=== PATIENT | female | born 1995 | race African-American/Black ===

== ENCOUNTER 2019-03-13 13:26 | Emergency (ER) | payer MEDICAID, OTHER ==
[~2019-03-13] VITALS: Ht 154.9 cm; Wt 47.6 kg
[~2019-03-13 13:26] MED LIST: PREN-96 PO
[2019-03-13 13:43] VITALS: BP 104/61
== END 2019-03-13 16:07 | disposition home or self-care (01) ==
LOC: EDBD 13:26 → ER 13:38
DX: M79.10 Myalgia, unspecified site (principal); Z79.899 Other long term (current) drug therapy; V49.49XA Driver injured in collision with other motor vehicles in traffic accident, initial encounter; Y93.89 Activity, other specified; Y99.8 Other external cause status; Y92.411 Interstate highway as the place of occurrence of the external cause

== ENCOUNTER 2024-08-27 13:43 | Emergency (ER) | payer OTHER ==
[~2024-08-27] VITALS: Ht 154.9 cm; Wt 53.1 kg
[2024-08-27 15:02] LABS: Basophils # (auto) 0 10 ^3/uL (0-0.2); Basophils % (auto) 0.6 % (0.0-2.0); Eosinophils # (auto) 0 10 ^3/uL (0-0.8); Eosinophils % (auto) 0.5 % (0.0-7.0); Hemoglobin 13.7 g/dL (12.2-16.2); Lymphocytes # (auto) 1.4 10 ^3/uL (0.4-5.4); Lymphocytes % (auto) 30.2 % (10.0-50.0); Mean Corpuscular Hemoglobin 30.2 pg (28.0-32.0); Mean Corpuscular Hgb Conc. 34.2 g/dL (32.0-36.0); Mean Corpuscular Volume 88.3 fL (80.0-100.0); Monocytes # (auto) 0.5 10 ^3/uL (0-1.3); Monocytes % (auto) 9.5 % (0.0-12.0); Neutrophils # (auto) 2.8 10 ^3/uL (1.6-8.6); Neutrophils % (auto) 59.2 % (37.0-80.0); Nucleated Red Blood Cells % 0.1 %; Platelet Count (auto) 398 10^3/uL (140-450); Red Blood Cells 4.53 10^6/uL (4.0-5.20); White Blood Cell 4.8 10^3/uL (4.4-10.8)
[2024-08-27 15:08] LABS: Chloride 102 mmol/L (98-107); Potassium 3.2 mmol/L (3.5-5.1); Sodium 136 mmol/L (136-145)
[2024-08-27 15:09] LABS: Anion Gap 8 (5-15); Carbon Dioxide 26 mmol/L (20-31)
[2024-08-27 15:10] LABS: Calcium 9.8 mg/dL (8.7-10.4)
[2024-08-27 15:14] LABS: BUN/Creatinine Ratio 8.5 (10.0-20.0); Blood Urea Nitrogen 6 mg/dL (9-23); Glucose 98 mg/dL (74-106)
[2024-08-27 15:38] LABS: Urine Bacteria None Seen /hpf (None Seen)
[2024-08-27 15:52] LABS: Urine Blood Negative /uL (Negative); Urine Clarity Clear (Clear); Urine Color Yellow (Yellow); Urine Mucus FEW (None Seen); Urine Protein, UAD 1+ (Negative); Urine Specific Gravity 1.029 (1.001-1.035); Urine Urobilinogen 8 mg/dL (Negative); Urine WBC 24 /hpf (0 - 5); Urine pH 7.5 (5.0-9.0)
[2024-08-27 16:01] LABS: Amphetamine Screen, Urine Neg (NEGATIVE); Barbiturate Scree,Urine Neg (NEGATIVE); Benzodiazephine Screen, Urine Neg (NEGATIVE); Cocaine Screen, Urine Neg (NEGATIVE); Opiate Scree,Urine Neg (NEGATIVE)
[2024-08-27 16:02] LABS: Cannabinoid Screen, Urine Pos (NEGATIVE); Phencyclidine Screen, Urine Neg (NEGATIVE)
[2024-08-27] MEDS ORDERED: ZOFR4T PO (17:05)
[2024-08-27] MEDS ORDERED: NITR-87 PO (17:05)
[2024-08-27] MEDS: SODIUM CHLORIDE 0.9% 1,000 ML IV ONE (17:11)
[2024-08-27] MEDS: ONDANSETRON HCL 4 MG/2 ML VIAL IV ONE (17:13)
[2024-08-27 18:20] VITALS: BP 106/68; PULSE 83; RESP 17; TEMP 98.6; O2SAT 98
== END 2024-08-27 18:23 | disposition home or self-care (01) ==
LOC: ER 13:52
DX: O21.0 Mild hyperemesis gravidarum (principal); R10.2 Pelvic and perineal pain; O99.321 Drug use complicating pregnancy, first trimester; O23.41 Unspecified infection of urinary tract in pregnancy, first trimester; N39.0 Urinary tract infection, site not specified; Z3A.01 Less than 8 weeks gestation of pregnancy; Z79.899 Other long term (current) drug therapy
CPT/HCPCS: 36415; 76801; 80048; 80307; 81001; 82010; 84702; 85025; 96361; 96374; 99285; J2405; J7030